=== PATIENT | male | born 1960 | race Caucasian/White ===

== ENCOUNTER 2019-08-07 22:20 | Inpatient (IN) | payer MEDICARE, MEDICAID ==
[~2019-08-07] VITALS: Ht 182.9 cm; Wt 93.0 kg
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
[2019-08-07 23:45] VITALS: BP 157/102
[2019-08-08] MEDS ORDERED: MAGNESIUM HYDROXIDE 30 ML UDC PO PRN
[2019-08-08] MEDS ORDERED: BLOOD SUGAR DIAGNOSTIC 1 EACH STRIP IN ONE
[2019-08-08] MEDS ORDERED: MAG HYDROX/AL HYDROX/SIMETH 30 ML UDC PO PRN
[2019-08-08] MEDS ORDERED: RISP3TAB14 PO (02:00)
[2019-08-08] MEDS ORDERED: FLUO40CA49 PO (02:00)
[2019-08-08] MEDS ORDERED: DEXTROSE 50%-WATER 50 ML DISP.SYRIN IV PRN (02:00)
[2019-08-08] MEDS ORDERED: METO-356 PO (02:00)
[2019-08-08] MEDS ORDERED: DIVA500T2 GT (02:00)
[2019-08-08] MEDS: AMOX/CLAVULANATE 875 MG TABLET PO SCH ×3 (02:00→22:18)
[2019-08-08] MEDS: BLOOD SUGAR DIAGNOSTIC 1 EACH STRIP IN SCH ×5 (02:00→22:19)
[2019-08-08] MEDS ORDERED: TIMO5DRO18 EACHEYE (02:00)
[2019-08-08] MEDS ORDERED: ACET-907 PO (02:00)
[2019-08-08] MEDS ORDERED: METF-440 PO (02:00)
[2019-08-08] MEDS ORDERED: LISI40TA4 PO (02:00)
[2019-08-08] MEDS ORDERED: TRAV5DRO LEFTEYE (02:00)
--- NOTE | 2019-08-08 02:03 | NUR ---
opal osborne in to see the patient.
[2019-08-08] MEDS ORDERED: TRAVOPROST (BENZALKONIUM) 2.5 ML BOTTLE LEFTEYE SCH (02:30)
[2019-08-08] MEDS: TIMOLOL 0.5% SOLN OPHTH 5 ML BOTTLE EACHEYE SCH ×3 (02:30→18:05)
[2019-08-08] MEDS ORDERED: AMOX/CLAVULANATE 875 MG TABLET PO ONE (03:00)
[2019-08-08 03:43] VITALS: BP 157/102
[2019-08-08] MEDS: METOPROLOL SUCCINATE 25 MG TAB.SR.24H PO SCH ×3 (03:52→18:05)
--- NOTE | 2019-08-08 03:58 | NUR ---
NEW MEDICATIONS ADMINISTERED ORDERED. ONE DOSE OF AGUMENTIN ADMINISTERED AND METOPROLOL ADMINISTERED ORDERED. PATIENT REFUSING ADDITIONAL CCUCHECK AND INSULIN COVERAGE. STATES "WE CAN DO THAT LATER THIS AM.
[2019-08-08 07:43] LABS: ALBUMIN 3.7 g/dL (3.4-5.0); BILIRUBIN,TOTAL 1.1 mg/dL (0.2-1.0); CALCIUM, SERUM 8.7 mg/dL (8.5-10.1); CREATININE 1.1 mg/dL (0.6-1.3); POTASSIUM 3.1 mmol/L (3.5-5.1)
[2019-08-08 07:46] LABS: CHOLESTEROL 154 mg/dL (<200); HDL CHOLESTEROL 40 mg/dL (40-60); LDL 105 mg/dL (0-99); TRIGLYCERIDES 70 mg/dL (30-150)
[2019-08-08 08:00] VITALS: BP 152/95
[2019-08-08] MEDS: INSULIN REGULAR, HUMAN 100 UNIT/ML 3 ML VIAL SQ PRN ×3 (08:31→22:32)
--- NOTE | 2019-08-08 09:13 | NUR ---
WOUND CARE CONSULT: PT PRESENTS WITH ABRASIONS AND PUNCTURE SITES TO RT FOREARM AND DRY ABRASION TO KNEE, PRESENT ON ADMISSION. DEFER TO MD FOR POSSIBLE SURGICAL CONSULT. RECOMMENDATIONS MADE FOR WOUND CARE AND DISCUSSED WITH NURSING STAFF. PT IS INDEPENDENT WITH BED MOBILITY AND CONTINENT. WILL SEE PRN. Addendum: 08/08/19 at 0915 by BEATA DEMPSEY Amended: Links added. Addendum: 08/08/19 at 1052 by BEATA DEMPSEY SPOKE WITH DAVID HEARN N.P. AND LOCAL WOUND CARE ORDERS DISCUSSED. ATTENDING Ama. IN AGREEMENT WITH PLAN OF CARE. NO SURGICAL CONSULT AT THIS TIME.
[2019-08-08] MEDS: LOSARTAN POTASSIUM 25 MG TABLET PO SCH (10:41)
[2019-08-08] MEDS: risperiDONE 1 MG TABLET PO SCH ×2 (11:27→18:05)
[2019-08-08] MEDS: POTASSIUM CHLORIDE 20 MEQ TAB.PRT.SR PO SCH ×2 (11:27→12:34)
[2019-08-08] MEDS: LITHIUM CARBONATE 150 MG CAPSULE PO SCH ×2 (11:28→22:18)
[2019-08-08] MEDS: DIVALPROEX SODIUM 250 MG TABLET.DR PO SCH ×2 (13:19→18:06)
[2019-08-08 16:00] VITALS: BP 145/92
[2019-08-08] MEDS: ACETAMINOPHEN 325 MG TABLET PO PRN (16:45)
--- NOTE | 2019-08-08 16:47 | NUR ---
given tylenol for pain rt. arm.
--- NOTE | 2019-08-08 18:34 | NUR ---
no change in status,wd care done to rt. arm.
[2019-08-08 20:00] VITALS: BP 138/77
[2019-08-08 20:25] VITALS: BP 138/77
[2019-08-08] MEDS: LATANOPROST EYE DROP 0.005% 2.5 ML BOTTLE LEFTEYE SCH (22:18)
--- NOTE | 2019-08-08 22:36 | NUR ---
INVESTMENT BANKING ANALYST NOTES' BLOOD SUGAR 180, 3 UNITS OF INSULIN GIVEN ALLEN SQ ORDERED ON DIFF. SITE. SNACKS ALSO SERVED. NO SIGNS OF HYPO/HYPER GLYCEMIA NOTED. WILL CONTINUE MONITORING.
[2019-08-09] MEDS: LORAZEPAM 0.5 MG TABLET PO PRN (06:14)
--- NOTE | 2019-08-09 06:14 | NUR ---
PATTERN RULER NOTES SEEN PT AWAKE AND SAYING I NEED SOMETHING TO HELP ME RELAX HE ASK FOR XANAX BUT I TOLD HIM I WILL CHECK. SPOKE TO HIM THAT ONLY ATIVAN IS ORDER THE HE SAID OK , ATIVAN PO GIVEN. SAFETY PRECAUTION IMPLEMENTED AND OBSERVED. WILL CONTINUE MONITORING.
[2019-08-09 06:55] LABS: BASOPHILS % (AUTO) 0.5 % (0.0-2.0); EOSINOPHILS % (AUTO) 0.9 % (0.0-6.0); HEMATOCRIT 43 % (39-51); HEMOGLOBIN 14.6 g/dL (13.5-17.5); LYMPHOCYTES % (AUTO) 15.4 % (20.0-44.0); MEAN CORPUSCULAR HGB CONC 34 g/dl (31.0-36.0); MEAN CORPUSCULAR VOLUME 95 fL (80-96); MONOCYTES # (AUTO) 0.5 /CMM (0.1-1.30); MONOCYTES % (AUTO) 8.2 % (2.0-12.0); PLATELET COUNT (AUTO) 109 /CMM (150-450); RED BLOOD CELL COUNT(AUTO) 4.51 MIL/uL (4.5-6.0); WHITE BLOOD COUNT (AUTO) 6.7 K/uL (4.3-11.0)
[2019-08-09 07:03] LABS: CALCIUM, SERUM 8.5 mg/dL (8.5-10.1); MAGNESIUM 2.1 mg/dL (1.8-2.4); PHOSPHORUS 2.8 mg/dL (2.5-4.9); POTASSIUM 3.2 mmol/L (3.5-5.1)
[2019-08-09] MEDS ORDERED: POTASSIUM CHLORIDE 20 MEQ TAB.PRT.SR PO ONE (07:30)
[2019-08-09 08:00] VITALS: BP 156/92
[2019-08-09] MEDS: BLOOD SUGAR DIAGNOSTIC 1 EACH STRIP IN SCH ×4 (08:23→21:19)
[2019-08-09] MEDS: INSULIN REGULAR, HUMAN 100 UNIT/ML 3 ML VIAL SQ PRN ×4 (08:32→21:21)
[2019-08-09] MEDS: METOPROLOL SUCCINATE 25 MG TAB.SR.24H PO SCH ×2 (08:59→16:41)
[2019-08-09] MEDS: DIVALPROEX SODIUM 250 MG TABLET.DR PO SCH ×3 (09:00→16:41)
[2019-08-09] MEDS: LOSARTAN POTASSIUM 25 MG TABLET PO SCH (09:00)
[2019-08-09] MEDS: AMOX/CLAVULANATE 875 MG TABLET PO SCH ×2 (09:00→20:34)
[2019-08-09] MEDS: LITHIUM CARBONATE 150 MG CAPSULE PO SCH ×2 (09:01→20:35)
[2019-08-09] MEDS: risperiDONE 1 MG TABLET PO SCH ×3 (09:01→20:34)
[2019-08-09] MEDS: TIMOLOL 0.5% SOLN OPHTH 5 ML BOTTLE EACHEYE SCH ×2 (09:53→16:40)
--- NOTE | 2019-08-09 12:58 | NUR ---
INITIAL DISCHARGE PLAN: Per pt he is unable to return to the board and care on [address] [facility] [address]. Pt stated that he wants SNF placement. SW will help form a safe and proper discharge in collaboration with .
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
[2019-08-09 16:00] VITALS: BP 155/95
[2019-08-09 20:00] VITALS: BP 143/70
[2019-08-09 20:26] VITALS: BP 143/70
[2019-08-09] MEDS: LATANOPROST EYE DROP 0.005% 2.5 ML BOTTLE LEFTEYE SCH (21:16)
[2019-08-09] MEDS: TEMAZEPAM 7.5 MG CAPSULE PO PRN (21:50)
--- NOTE | 2019-08-09 21:50 | NUR ---
RN GPS NOTES PATIENT REQUESTING FOR SLEEP MEDICATION RESTORIL PRN OFFERED PATIENT AGREED, TOILETING OFFERED PRIOR TO ADMINISTRATION. PRN RESTORIL GIVEN ORDERED. PATIENT MADE AWARE OF BED ALARM ON FOR SAFETY PRECAUTIONS VERBALLY UNDERSTANDS. WILL CONTINUE TO MONITOR.
[2019-08-10] MEDS: BLOOD SUGAR DIAGNOSTIC 1 EACH STRIP IN SCH ×4 (07:54→21:00)
[2019-08-10 08:00] VITALS: BP 151/89
[2019-08-10] MEDS: DIVALPROEX SODIUM 250 MG TABLET.DR PO SCH ×3 (08:38→16:49)
[2019-08-10] MEDS: LITHIUM CARBONATE 150 MG CAPSULE PO SCH ×2 (08:39→20:45)
[2019-08-10] MEDS: METOPROLOL SUCCINATE 25 MG TAB.SR.24H PO SCH ×2 (08:39→16:49)
[2019-08-10] MEDS: AMOX/CLAVULANATE 875 MG TABLET PO SCH ×2 (08:39→20:45)
[2019-08-10] MEDS: risperiDONE 1 MG TABLET PO SCH ×3 (08:39→20:44)
[2019-08-10] MEDS: LOSARTAN POTASSIUM 25 MG TABLET PO SCH (08:40)
[2019-08-10] MEDS: TIMOLOL 0.5% SOLN OPHTH 5 ML BOTTLE EACHEYE SCH ×2 (08:47→16:50)
[2019-08-10] MEDS: INSULIN REGULAR, HUMAN 100 UNIT/ML 3 ML VIAL SQ PRN ×2 (08:50→12:32)
--- NOTE | 2019-08-10 15:14 | NUR ---
GROUP NOTE: SW prompted pt to attend group on 08/10/19 at 2:30pm discussing goal setting for while they are in the hospital and after discharge, but pt was sleeping and not easily aroused.
[2019-08-10] MEDS: ACETAMINOPHEN 325 MG TABLET PO PRN (15:16)
--- NOTE | 2019-08-10 15:20 | NUR ---
GPS/RN-NOTES PATIENT REQUESTING TYLENOL FOR RIGHT HAND PAIN. TYLENOL 650MG P.O GIVEN PRN ORDER. WILL CONT. MONITORING FOR SAFETY .
[2019-08-10 16:00] VITALS: BP 158/90
[2019-08-10 20:38] VITALS: BP 139/84
[2019-08-10] MEDS: LATANOPROST EYE DROP 0.005% 2.5 ML BOTTLE LEFTEYE SCH (21:00)
[2019-08-10] MEDS: TEMAZEPAM 7.5 MG CAPSULE PO PRN (22:53)
[2019-08-11 08:00] VITALS: BP 148/98
[2019-08-11] MEDS: INSULIN REGULAR, HUMAN 100 UNIT/ML 3 ML VIAL SQ PRN ×2 (08:32→12:50)
[2019-08-11] MEDS: LITHIUM CARBONATE 150 MG CAPSULE PO SCH ×2 (08:34→20:36)
[2019-08-11] MEDS: AMOX/CLAVULANATE 875 MG TABLET PO SCH ×2 (08:35→20:36)
[2019-08-11] MEDS: risperiDONE 1 MG TABLET PO SCH ×3 (08:35→20:36)
[2019-08-11] MEDS: DIVALPROEX SODIUM 250 MG TABLET.DR PO SCH ×3 (08:35→16:26)
[2019-08-11] MEDS: METOPROLOL SUCCINATE 25 MG TAB.SR.24H PO SCH ×2 (08:35→16:27)
[2019-08-11] MEDS: BLOOD SUGAR DIAGNOSTIC 1 EACH STRIP IN SCH ×4 (08:47→21:51)
[2019-08-11] MEDS: TIMOLOL 0.5% SOLN OPHTH 5 ML BOTTLE EACHEYE SCH ×2 (08:48→16:28)
[2019-08-11] MEDS: LOSARTAN POTASSIUM 25 MG TABLET PO SCH (08:49)
[2019-08-11] MEDS: LORAZEPAM 0.5 MG TABLET PO PRN (13:02)
[2019-08-11 16:00] VITALS: BP 146/89
[2019-08-11 20:16] VITALS: BP 160/94
[2019-08-11 21:00] VITALS: BP 138/82
[2019-08-11] MEDS: TEMAZEPAM 7.5 MG CAPSULE PO PRN (21:51)
[2019-08-11] MEDS: LATANOPROST EYE DROP 0.005% 2.5 ML BOTTLE LEFTEYE SCH (21:51)
[2019-08-12] MEDS: BLOOD SUGAR DIAGNOSTIC 1 EACH STRIP IN SCH ×4 (07:53→21:12)
[2019-08-12] MEDS: INSULIN REGULAR, HUMAN 100 UNIT/ML 3 ML VIAL SQ PRN ×3 (07:56→21:38)
[2019-08-12 08:00] VITALS: BP 155/85
[2019-08-12] MEDS: LOSARTAN POTASSIUM 25 MG TABLET PO SCH (08:31)
[2019-08-12] MEDS: DIVALPROEX SODIUM 250 MG TABLET.DR PO SCH ×3 (08:31→17:04)
[2019-08-12] MEDS: AMOX/CLAVULANATE 875 MG TABLET PO SCH ×2 (08:31→21:09)
[2019-08-12] MEDS: LITHIUM CARBONATE 150 MG CAPSULE PO SCH ×2 (08:31→21:11)
[2019-08-12] MEDS: METOPROLOL SUCCINATE 25 MG TAB.SR.24H PO SCH ×2 (08:31→17:04)
[2019-08-12] MEDS: risperiDONE 1 MG TABLET PO SCH ×3 (08:32→21:11)
[2019-08-12] MEDS: TIMOLOL 0.5% SOLN OPHTH 5 ML BOTTLE EACHEYE SCH ×2 (08:52→17:05)
[2019-08-12 15:57] VITALS: BP 154/86
[2019-08-12 19:46] VITALS: BP 148/88
[2019-08-12] MEDS: LATANOPROST EYE DROP 0.005% 2.5 ML BOTTLE LEFTEYE SCH (21:12)
--- NOTE | 2019-08-12 21:44 | NUR ---
RN NOTES HS ACCUCHECK BG 204. ADMINISTERED 4UN OF INSULIN PER SLIDING SCALE VIA LT DELTOID. PROVIDED SNACKS AT BEDSIDE.
[2019-08-12 22:00] VITALS: BP 148/88
[2019-08-12] MEDS: TEMAZEPAM 7.5 MG CAPSULE PO PRN (23:00)
[2019-08-13 07:24] LABS: BASOPHILS % (AUTO) 0.9 % (0.0-2.0); EOSINOPHILS % (AUTO) 3.3 % (0.0-6.0); HEMATOCRIT 45 % (39-51); HEMOGLOBIN 15.2 g/dL (13.5-17.5); LYMPHOCYTES # (AUTO) 1.2 /CMM (0.8-4.8); MEAN CORPUSCULAR HGB CONC 34 g/dl (31.0-36.0); MEAN CORPUSCULAR VOLUME 95 fL (80-96); MONOCYTES # (AUTO) 0.4 /CMM (0.1-1.30); MONOCYTES % (AUTO) 7.9 % (2.0-12.0); NEUTROPHILS # (AUTO) 2.9 /CMM (1.8-8.9); NEUTROPHILS % (AUTO) 61.9 % (43.0-81.0); PLATELET COUNT (AUTO) 122 /CMM (150-450); RED BLOOD CELL COUNT(AUTO) 4.76 MIL/uL (4.5-6.0); WHITE BLOOD COUNT (AUTO) 4.7 K/uL (4.3-11.0)
[2019-08-13 07:38] LABS: CALCIUM, SERUM 8.6 mg/dL (8.5-10.1); MAGNESIUM 2.2 mg/dL (1.8-2.4); PHOSPHORUS 3.9 mg/dL (2.5-4.9); POTASSIUM 3.6 mmol/L (3.5-5.1)
[2019-08-13] MEDS: BLOOD SUGAR DIAGNOSTIC 1 EACH STRIP IN SCH ×4 (07:54→21:31)
[2019-08-13] MEDS: INSULIN REGULAR, HUMAN 100 UNIT/ML 3 ML VIAL SQ PRN ×5 (07:57→21:34)
[2019-08-13 08:00] VITALS: BP 157/85
[2019-08-13] MEDS: risperiDONE 1 MG TABLET PO SCH ×3 (08:00→20:24)
[2019-08-13] MEDS: AMOX/CLAVULANATE 875 MG TABLET PO SCH ×2 (08:01→20:23)
[2019-08-13] MEDS: LOSARTAN POTASSIUM 25 MG TABLET PO SCH (08:02)
[2019-08-13] MEDS: DIVALPROEX SODIUM 250 MG TABLET.DR PO SCH ×3 (08:02→16:29)
[2019-08-13] MEDS: LITHIUM CARBONATE 150 MG CAPSULE PO SCH ×2 (08:02→20:23)
[2019-08-13] MEDS: METOPROLOL SUCCINATE 25 MG TAB.SR.24H PO SCH ×2 (08:03→16:29)
[2019-08-13] MEDS: TIMOLOL 0.5% SOLN OPHTH 5 ML BOTTLE EACHEYE SCH ×2 (08:35→16:31)
--- NOTE | 2019-08-13 09:09 | NUR ---
ELISEO FAXED SNF REFERRAL to [facility] Address: [address] [place] [address] for review.
--- NOTE | 2019-08-13 10:44 | NUR ---
SW received a call from Subhash, admissions representative at [facility] Address: [address] [place] [address] stating pt has been accepted to the facility.
--- NOTE | 2019-08-13 13:14 | NUR ---
SW received a call from pts daughter Nicole [phone] who stated she believed pt was missing for a whole week and was not aware that pt was currently hospitalized. SW informed her that pt did not disclose any information and stated he did not have contact with his family. Daughter informed SW that she is currently in the process of getting conservatorship over pt. SW stated that pts discharge plan is for him to be discharged to [facility]. Daughter disagreed with placement and stated that [place] was too far and SW explained that most SNF's out of the area hardly accepted psychiatric pts and daughter understood and agreed with discharge plan. Daughter requested SW provide pt with her contact information. SW stated she would provide pt with her contact information.
--- NOTE | 2019-08-13 13:44 | NUR ---
PATIENT SUPPORT: SW spoke with pt regarding his daughter Nicole [phone] contacting SW and informing her that she wants to be involved with pts discharge planning. Pt gave SW permission to coordinate discharge plan with daughter as he stated he wishes for her to be involved with his treatment/discharge planning.
--- NOTE | 2019-08-13 13:49 | NUR ---
SW contacted pts daughter Nicole [phone] to inform her pt wishes for her to be involved with his discharge/treatment planning. Daughter stated that her mother just last week and is in the middle of planning her . Daughter stated that she wishes for pt to be discharged to an SNF in [place]. SW informed her that there are a few SNF's in [place] that SW can refer pt to. Daughter agreed and SW informed her that she would be contacting her with updates. Daughter agreed.
--- NOTE | 2019-08-13 15:10 | NUR ---
ELISEO FAXED SNF referral to [facility] Address: [address] [place] [address] and [facility] Address: [address] [place] [address] P: [phone] F: [phone] for review.
--- NOTE | 2019-08-13 15:25 | NUR ---
GROUP NOTE: ELISEO encouraged pt to participate in group on this present day discussing "discharge planning." Pt refused to attend and stated he wanted to stay in bed. Pt remains isolative and withdrawn with depressed mood. Pt stated he was tired as he hardly slept last night. Addendum: 08/13/19 at 1527 by BARBARA GOMES ERROR
--- NOTE | 2019-08-13 15:27 | NUR ---
GROUP NOTE: SW encouraged pt to participate in group on this present day discussing "discharge planning." Pt refused to attend and stated he wanted to stay in bed. Pt remains isolative and withdrawn with depressed mood. Pt stated he was tired as he hardly slept last night. SW used the opportunity to intervene and discuss pts treatment goals, SW discussed the importance of group milieu and participating in groups and activities to help with his depression. SW also pointed out pts strengths of communicating his feelings and needs.
[2019-08-13 16:00] VITALS: BP 151/93
[2019-08-13 20:05] VITALS: BP 150/88
[2019-08-13] MEDS: LATANOPROST EYE DROP 0.005% 2.5 ML BOTTLE LEFTEYE SCH (21:30)
[2019-08-13] MEDS: TEMAZEPAM 7.5 MG CAPSULE PO PRN (21:30)
[2019-08-14 08:00] VITALS: BP 143/88
[2019-08-14] MEDS: BLOOD SUGAR DIAGNOSTIC 1 EACH STRIP IN SCH ×5 (08:25→22:40)
[2019-08-14] MEDS: INSULIN REGULAR, HUMAN 100 UNIT/ML 3 ML VIAL SQ PRN ×3 (08:29→18:16)
[2019-08-14] MEDS: LITHIUM CARBONATE 150 MG CAPSULE PO SCH ×2 (09:19→21:29)
[2019-08-14] MEDS: risperiDONE 1 MG TABLET PO SCH ×3 (09:19→20:06)
[2019-08-14] MEDS: TIMOLOL 0.5% SOLN OPHTH 5 ML BOTTLE EACHEYE SCH ×2 (09:19→17:08)
[2019-08-14] MEDS: LOSARTAN POTASSIUM 25 MG TABLET PO SCH (09:19)
[2019-08-14] MEDS: METOPROLOL SUCCINATE 25 MG TAB.SR.24H PO SCH ×2 (09:20→17:09)
[2019-08-14] MEDS: DIVALPROEX SODIUM 250 MG TABLET.DR PO SCH ×3 (09:20→17:08)
--- NOTE | 2019-08-14 15:00 | NUR ---
NO ACUTE DISTRESS,VS STABLE.TOLERATED WD. CARE RT. ARM WOUND LOOKS VERY CLEAN WITH SCANT SEROUS DRAINAGE.
--- NOTE | 2019-08-14 15:10 | NUR ---
GROUP NOTE: SW encouraged pt to participate in group on this present day discussing "appropriate coping skills." Pt was laying in bed and refused to participate stating that he was not feeling well and wanted to sleep. SW provided intervention and discussed pts isolation. Pt reported that he continues to feel depressed and that the medication is not working. SW encouraged pt to discuss his symptoms with his nurse and psychiatrist.
[2019-08-14 16:00] VITALS: BP 166/95
--- NOTE | 2019-08-14 20:06 | NUR ---
TOOK HIS ROUTINE NIGHT MEDS. VERY PLEASANT AND COOPERATIVE.
[2019-08-14 20:19] VITALS: BP 143/85
[2019-08-14] MEDS: LORAZEPAM 0.5 MG TABLET PO PRN (21:30)
--- NOTE | 2019-08-14 21:30 | NUR ---
Pt complaining of anxiety, Ativan 0.5 mg tab 1 po administered
[2019-08-14] MEDS: LATANOPROST EYE DROP 0.005% 2.5 ML BOTTLE LEFTEYE SCH (22:39)
--- NOTE | 2019-08-14 22:40 | NUR ---
ACCUCHECK, 133 MG/DL. PATIENT REFUSED INSULIN COVERAGE. OFFERED HS SNACKS, REFUSED TOO.
[2019-08-15] MEDS: INSULIN REGULAR, HUMAN 100 UNIT/ML 3 ML VIAL SQ PRN ×4 (07:53→22:01)
[2019-08-15] MEDS: BLOOD SUGAR DIAGNOSTIC 1 EACH STRIP IN SCH ×4 (07:56→21:58)
[2019-08-15] MEDS: risperiDONE 1 MG TABLET PO SCH ×3 (07:56→20:03)
[2019-08-15 08:00] VITALS: BP 152/91
[2019-08-15] MEDS: TIMOLOL 0.5% SOLN OPHTH 5 ML BOTTLE EACHEYE SCH ×2 (08:00→16:56)
[2019-08-15] MEDS: LOSARTAN POTASSIUM 25 MG TABLET PO SCH (08:01)
[2019-08-15] MEDS: LITHIUM CARBONATE 150 MG CAPSULE PO SCH ×2 (08:01→20:03)
[2019-08-15] MEDS: METOPROLOL SUCCINATE 25 MG TAB.SR.24H PO SCH ×2 (08:01→16:52)
[2019-08-15] MEDS: DIVALPROEX SODIUM 250 MG TABLET.DR PO SCH ×3 (08:01→16:51)
--- NOTE | 2019-08-15 10:04 | NUR ---
ELISEO FAXED SNF referral to [facility] Address: [address], [place] [address] for review.
--- NOTE | 2019-08-15 12:24 | NUR ---
ERROR: THIS NOTE WAS MEANT FOR A DIFFERENT PT.
--- NOTE | 2019-08-15 12:40 | NUR ---
INTERVENTION: SW met with pt to discuss pts feelings of depression, pt stated that he was feeling better today and was ready to be discharged. Pt was seen out of bed in the activity room; interacting with peers.
--- NOTE | 2019-08-15 12:58 | NUR ---
RN NOTE- DSG CHANGE RFA DONE PER ORDERS. HEALING WELL. TOLERATED DSG CHANGE/ NO COMPLAINTS OR PAIN. NEG ERYTHEMA NEG EXUDATE
--- NOTE | 2019-08-15 13:39 | NUR ---
SW received a call from Rodo, hospice coordinator at [facility] Address: [address] [place] [phone] stating that pt has been approved to the facility.
--- NOTE | 2019-08-15 14:02 | NUR ---
ELISEO contacted pts daughter Nicole [phone] to inform her pt will be discharging tomorrow 08/16/19 to [facility]. Daughter agreed with discharge plan.
[2019-08-15] MEDS: ACETAMINOPHEN 325 MG TABLET PO PRN (14:11)
--- NOTE | 2019-08-15 14:15 | NUR ---
RN NOTE- PT C/O HEADACHE. REQUESTING TYLENOL. CHECKED V/S - B/P 137/77. HR- 66. TYLENOL 650 MG ADMINISTERED.
--- NOTE | 2019-08-15 15:28 | NUR ---
Group Note: SW encouraged pt to participate in group on 08/15/19 at 2pm discussing discharge planning. Pt was laying in bed and refused to participate stating that he was not feeling well and wanted to sleep. He stated that he is aware of his discharge plan for tomorrow.
[2019-08-15 16:00] VITALS: BP 163/94
[2019-08-15 20:11] VITALS: BP 144/87
[2019-08-15 20:16] VITALS: BP 144/87
[2019-08-15] MEDS: LATANOPROST EYE DROP 0.005% 2.5 ML BOTTLE LEFTEYE SCH (21:59)
[2019-08-15] MEDS: TEMAZEPAM 7.5 MG CAPSULE PO PRN (22:05)
--- NOTE | 2019-08-15 22:05 | NUR ---
RN GPS NOTES PATIENT REQUESTING FOR SLEEPING PILL PRN RESTORIL OFFERED ORDERED , PATIENT AGREED TO TAKE PRN RESTORIL GIVEN WILL CONTINUE TO MONITOR FOR EFFECTIVENESS, SNACKS AND HYDRATION ALSO PROVIDED.
[2019-08-16 08:00] VITALS: BP 143/89
[2019-08-16] MEDS: BLOOD SUGAR DIAGNOSTIC 1 EACH STRIP IN SCH (08:11)
[2019-08-16] MEDS: INSULIN REGULAR, HUMAN 100 UNIT/ML 3 ML VIAL SQ PRN (08:14)
[2019-08-16] MEDS: risperiDONE 1 MG TABLET PO SCH (08:34)
[2019-08-16] MEDS: DIVALPROEX SODIUM 250 MG TABLET.DR PO SCH (08:34)
[2019-08-16] MEDS: LITHIUM CARBONATE 150 MG CAPSULE PO SCH (08:34)
[2019-08-16 08:35] VITALS: BP 143/89
[2019-08-16] MEDS: LOSARTAN POTASSIUM 25 MG TABLET PO SCH (08:35)
[2019-08-16] MEDS: METOPROLOL SUCCINATE 25 MG TAB.SR.24H PO SCH (08:35)
[2019-08-16] MEDS: TIMOLOL 0.5% SOLN OPHTH 5 ML BOTTLE EACHEYE SCH (08:39)
--- NOTE | 2019-08-16 09:09 | NUR ---
DR. EDWARD GAVE AN ORDER TO D/C HOLD AND D/C TO [facility], TO CONTINUE SAME MEDS INCLUDING PRN AND TO FOLLOW UP WITH PSYCH AND MEDICAL DOCTORS.
--- NOTE | 2019-08-16 09:24 | NUR ---
DISCHARGE NOTE: Pt will be discharged at 10:00am via [facility] to [facility] ([facility]) Address: [address] [place] [address] . Pts daughter Karolina [phone] has been notified and agrees with discharge plan. Pts mood is euthymic with congruent affect. Pt denied visual/auditory hallucinations and denied suicidal/homicidal ideation. Pt will address his substance use with Psychiatrist: Dr. Norbert Amador [address] [facility] [address], [place] [address] [phone] and Manager Scheduling: Dr. Erik Pitts [address] [facility] [address], [place] [address] [phone]. The multidisciplinary exitcare form was done, printed, signed, and given to the patient.
[2019-08-16] MEDS ORDERED: INFLUENZA VACCINE 2019-20 0.5 ML DISP.SYRIN IM ONE (10:00)
--- NOTE | 2019-08-16 11:00 | NUR ---
RN NOTE: PATIENT REFUSED WOUND CARE THIS MORNING
--- NOTE | 2019-08-16 11:27 | NUR ---
RN NOTE: PATIENT IS A 58 YEAR OLD MALE DISCHARGED TO [facility] ([facility]) [address] [facility] [id number] . PATIENT IS IN STABLE CONDITION. VSS. NO ACUTE DISTRESS NOTED. NO COMPLAINTS. COMPLIANT WITH MEDICATION MANAGEMENT. COOPERATIVE WITH PLAN OF CARE. PSYCHIATRIC TREATMENT PLANS MET. MEDICAL TREATMENT PLANS DEFERRED FOR CONTINUAL MONITORING. DENIES SI/HI VAH AT THE TIME OF DISCHARGE. SKIN CHECK DONE WITH WOUND PICTURES IN CHART, PATIENT REFUSED WOUND CARE THIS MORNING. EDUCATED PATIENT ABOUT AFTERCARE WITH COPY PROVIDED. RETURNED PERSONAL BELONGINGS TO PATIENT. MEDICATIONS RECONCILED WITH DR. DEL ROSARIO AND DR. BAPTISTE ALONG WITH PSYCHIATRIC DISCHARGE ORDERS. DISCHARGE PAPERWORK SIGNED. FOR FOLLOW UP WITH PSYCHIATRIST DR MIRNA WADE [address] [facility] [address] [facility] [id number] AND [facility]ON[facility]ARE UNIT NURSE DR YEYO MORATAYA [address] [facility] [address] [facility] [address] WITHIN 1 WEEK. REPORT GIVEN TO RAMA Harry FROM [facility] TO GIVE REPORT. PATIENT LEFT [facility] AT 1125 VIA AMBULANCE.
== END 2019-08-16 11:25 | DRG 885 ==
LOC: GPS 23:23
PROVIDERS: ADMIT Psychiatry & Neurology Psychosomatic Medicine; ATTEND Nurse Practitioner Acute Care
DX: F25.0 Schizoaffective disorder, bipolar type (principal); N17.0 Acute kidney failure with tubular necrosis; N18.9 Chronic kidney disease, unspecified; E11.65 Type 2 diabetes mellitus with hyperglycemia; G92 Toxic encephalopathy; L03.113 Cellulitis of right upper limb; F19.10 Other psychoactive substance abuse, uncomplicated; F29 Unspecified psychosis not due to a substance or known physiological condition; E78.5 Hyperlipidemia, unspecified; F41.9 Anxiety disorder, unspecified; S41.151D Open bite of right upper arm, subsequent encounter; W54.0XXD Bitten by dog, subsequent encounter; D72.829 Elevated white blood cell count, unspecified; E11.22 Type 2 diabetes mellitus with diabetic chronic kidney disease; I12.9 Hypertensive chronic kidney disease with stage 1 through stage 4 chronic kidney disease, or unspecified chronic kidney disease; E87.6 Hypokalemia; E78.00 Pure hypercholesterolemia, unspecified; F22 Delusional disorders; F10.10 Alcohol abuse, uncomplicated
CPT/HCPCS: 36415; 80048-TC; 80053-TC; 80061-TC; 82962-TC; 83735-TC; 84100-TC; 85025-TC; 87081-TC; 97116-TC; 97530-TC; A6253; J1815; Q2036